=== PATIENT | male | born 1955 | race Caucasian/White ===

== ENCOUNTER 2022-08-31 09:27 | Emergency (ER) | payer BC, MEDICARE ==
[2022-08-31] MEDS: Sodium Chloride 0.9% 10 ML Syringe FLUSH PRN (09:45)
[2022-08-31 10:01] LABS: BASOPHILS PERCENT AUTO 0.6 % (0.3-3.8); EOSINOPHILS PERCENT AUTO 0.8 % (0.1-6.8); HEMATOCRIT 41.5 % (38.3-50.1); LYMPHOCYTES ABSOLUTE AUTO 1.2 x10-3/uL (0.5-4.5); MEAN CORPUSCULAR HEMOGLOBIN 32.1 pg (27.0-33.3); MEAN CORPUSCULAR HGB CONC 33.8 g/dL (28.7-35.3); MEAN PLATELET VOLUME 6.9 fL (6.7-11.0); MONOCYTES ABSOLUTE AUTO 0.7 x10-3/uL (0.0-1.2); MONOCYTES PERCENT AUTO 14.2 % (5.5-15.2); NEUTROPHILS ABSOLUTE AUTO 3.1 x10-3/uL (1.7-6.9); NEUTROPHILS PERCENT AUTO 61.4 % (40.3-71.8); PLATELET COUNT,PLT 256 x10(3)uL (117-477); RED BLOOD CELL COUNT 4.37 x10(6)uL (3.90-5.90); RED CELL DISTRIBUTION WIDTH 13.5 % (12.4-15.0); WHITE BLOOD CELL COUNT,WBC 5.1 x10-3/uL (3.2-10.1)
[2022-08-31 10:04] LABS: BLOOD UREA NITROGEN,BUN 10 mg/dL (7-18); BUN/CREATININE RATIO 14.3 (9-20); CALCIUM 8.5 mg/dL (8.6-10.2); CARBON DIOXIDE,CO2 25 mmol/L (21-32); CHLORIDE,CL 100 mmol/L (100-110); CREATININE 0.7 mg/dL (0.70-1.30); EST CRCL DRUG DOSING (CG) 112.05 mL/min; ESTIMATED GFR 102 mL/min (>60); GLUCOSE RANDOM 141 mg/dL (80-116); POTASSIUM,K 3.4 mmol/L (3.5-5.3); SODIUM,NA 139 mmol/L (135-145)
[2022-08-31] MEDS: Aspirin 81 MG Tab.Chew PO ONE (10:05)
[2022-08-31 10:11] LABS: A/G RATIO 0.9; ALANINE AMINOTRANSFERASE,ALT 48 U/L (12-36); ALBUMIN 3.7 g/dL (3.2-4.6); ALKALINE PHOSPHATASE 87 IU/L (56-112); ASPARTATE AMNIOTRANSFERASE,AST 73 IU/L (5-25); BILIRUBIN TOTAL 0.6 mg/dL (0.1-1.3); MAGNESIUM 1.7 mg/dL (1.8-2.5); PROTEIN TOTAL,TP 7.7 g/dL (6.0-8.0)
[2022-08-31] MEDS: Sodium Chloride 0.9% 500 ML IV ONE (11:05)
[2022-08-31] MEDS: Iopamidol 755 Mg/ML 100 ML Bottle IV ONE (11:22)
== END 2022-08-31 12:58 | disposition home or self-care (01) ==
LOC: FB.ED 09:27
DX: I30.9 Acute pericarditis, unspecified (principal); Z72.0 Tobacco use
CPT/HCPCS: 36415; 71045; 71275; 80053; 83735; 84484; 85025; 85379; 85651; 86140; 93005; 96360; 99285; A9270; J3490; J7040; Q9967

== ENCOUNTER 2022-12-06 12:47 | Observation (INO) | payer MEDICARE ==
[2022-12-06] MEDS ORDERED: Sodium Chloride 0.9% 10 ML Syringe FLUSH PRN (13:12)
[2022-12-06] MEDS ORDERED: Potassium Chloride 20 MEQ Tab.ER PO ONE (13:12)
[2022-12-06] MEDS ORDERED: Sodium Chloride 0.9% 1,000 ML IV ONE ×2 (13:12)
[2022-12-06] MEDS ORDERED: Potassium Chloride 20 MEQ in Premix Bag 1 BAG IV ONE ×2 (13:12→17:00)
[2022-12-06] MEDS ORDERED: Ibuprofen 400 MG Tab PO PRN (13:12)
[2022-12-06] MEDS ORDERED: Ondansetron 4 MG/2 ML SDV IV PRN (13:12)
[2022-12-06] MEDS: NS + KCl 20mEq/L 1,000 ML IV SCH (14:50)
[2022-12-06] MEDS ORDERED: Sodium Chloride 0.9% 500 ML IV ONE (17:24)
[2022-12-06] MEDS: Albuterol 90 MCG/6.7 GM Inhaler INH PRN (18:20)
[2022-12-06] MEDS ORDERED: LORazepam 1 MG Tab PO PRN ×3 (19:57→21:00)
[2022-12-06] MEDS ORDERED: LORazepam 2 MG/ML SDV IV PRN (20:03)
[2022-12-07] MEDS: Albuterol 90 MCG/6.7 GM Inhaler INH PRN ×2 (01:01→08:23)
[2022-12-07] MEDS: NS + KCl 20mEq/L 1,000 ML IV SCH ×5 (01:12→18:32)
[2022-12-07 06:27] LABS: BASOPHILS PERCENT AUTO 0.1 % (0.3-3.8); EOSINOPHILS ABSOLUTE AUTO 0.1 x10-3/uL (0.0-0.6); HEMATOCRIT 36.7 % (38.3-50.1); HEMOGLOBIN 13.1 g/dL (12.9-17.7); LYMPHOCYTES ABSOLUTE AUTO 0.9 x10-3/uL (0.5-4.5); LYMPHOCYTES PERCENT AUTO 13.5 % (15.8-45.3); MEAN CORPUSCULAR HEMOGLOBIN 33.2 pg (27.0-33.3); MEAN CORPUSCULAR HGB CONC 35.7 g/dL (28.7-35.3); MEAN PLATELET VOLUME 7.8 fL (6.7-11.0); MONOCYTES ABSOLUTE AUTO 0.9 x10-3/uL (0.0-1.2); MONOCYTES PERCENT AUTO 13.5 % (5.5-15.2); NEUTROPHILS ABSOLUTE AUTO 4.5 x10-3/uL (1.7-6.9); NEUTROPHILS PERCENT AUTO 71.9 % (40.3-71.8); PLATELET COUNT,PLT 136 x10(3)uL (117-477); RED BLOOD CELL COUNT 3.95 x10(6)uL (3.90-5.90); RED CELL DISTRIBUTION WIDTH 14.2 % (12.4-15.0); WHITE BLOOD CELL COUNT,WBC 6.3 x10-3/uL (3.2-10.1)
[2022-12-07 06:42] LABS: ALBUMIN 3.6 g/dL (3.2-4.6); ALKALINE PHOSPHATASE 127 IU/L (56-112); BILIRUBIN TOTAL 1.8 mg/dL (0.1-1.3); BLOOD UREA NITROGEN,BUN 9 mg/dL (7-18); BUN/CREATININE RATIO 11.3 (9-20); CALCIUM 8.5 mg/dL (8.6-10.2); CARBON DIOXIDE,CO2 29 mmol/L (21-32); CHLORIDE,CL 90 mmol/L (100-110); CREATININE 0.8 mg/dL (0.70-1.30); EST CRCL DRUG DOSING (CG) 92.71 mL/min; ESTIMATED GFR 98 mL/min (>60); GLUCOSE RANDOM 90 mg/dL (80-116); MAGNESIUM 1.5 mg/dL (1.8-2.5); POTASSIUM,K 3.6 mmol/L (3.5-5.3); PROTEIN TOTAL,TP 7.2 g/dL (6.0-8.0); SODIUM,NA 128 mmol/L (135-145)
[2022-12-07 06:46] LABS: ALANINE AMINOTRANSFERASE,ALT 183 U/L (12-36)
[2022-12-07 06:47] LABS: ASPARTATE AMNIOTRANSFERASE,AST 163 IU/L (5-25)
[2022-12-07] MEDS ORDERED: Magnesium Sulfate/Water 2 GM in Premix Bag 1 BAG IV ONE (08:40)
[2022-12-07] MEDS ORDERED: DEXTROMETHORPHAN PO SCH (09:00)
[2022-12-07] MEDS ORDERED: GUAIFENESIN PO SCH (09:00)
[2022-12-07] MEDS ORDERED: INCRUSE ELIPTA INH SCH (09:00)
[2022-12-07] MEDS ORDERED: Nicotine 21 MG/24 Hr Patch *PTOM TRDERM SCH (12:00)
[2022-12-07 16:44] LABS: ALANINE AMINOTRANSFERASE,ALT 144 U/L (12-36); ALBUMIN 3.1 g/dL (3.2-4.6); ALKALINE PHOSPHATASE 112 IU/L (56-112); ASPARTATE AMNIOTRANSFERASE,AST 130 IU/L (5-25); BILIRUBIN TOTAL 1.3 mg/dL (0.1-1.3); BLOOD UREA NITROGEN,BUN 11 mg/dL (7-18); BUN/CREATININE RATIO 15.7 (9-20); CALCIUM 7.8 mg/dL (8.6-10.2); CARBON DIOXIDE,CO2 26 mmol/L (21-32); CHLORIDE,CL 92 mmol/L (100-110); CREATININE 0.7 mg/dL (0.70-1.30); EST CRCL DRUG DOSING (CG) 105.96 mL/min; ESTIMATED GFR 102 mL/min (>60); GLUCOSE RANDOM 125 mg/dL (80-116); MAGNESIUM 1.8 mg/dL (1.8-2.5); POTASSIUM,K 3.4 mmol/L (3.5-5.3); PROTEIN TOTAL,TP 6.2 g/dL (6.0-8.0); SODIUM,NA 126 mmol/L (135-145)
[2022-12-07] MEDS ORDERED: Potassium Chloride 20 MEQ Tab.ER PO ONE (18:02)
[2022-12-07] MEDS ORDERED: Sodium Chloride 1 GM Tab PO ONE (18:03)
[2022-12-07] MEDS ORDERED: Multivitamin Tab PO SCH (21:00)
[2022-12-07] MEDS ORDERED: Thiamine 100 MG Tab PO SCH (21:00)
== END 2022-12-07 23:30 | disposition left against medical advice (07) ==
LOC: FB.MS 12:47
PROVIDERS: ADMIT Family Medicine; ATTEND Family Medicine
DX: E87.6 Hypokalemia (principal); E87.1 Hypo-osmolality and hyponatremia; E87.8 Other disorders of electrolyte and fluid balance, not elsewhere classified; E86.0 Dehydration; E87.20 Acidosis, unspecified; E83.42 Hypomagnesemia; R74.01 Elevation of levels of liver transaminase levels; K75.9 Inflammatory liver disease, unspecified; E80.6 Other disorders of bilirubin metabolism; J44.9 Chronic obstructive pulmonary disease, unspecified; R11.2 Nausea with vomiting, unspecified; F33.9 Major depressive disorder, recurrent, unspecified; K86.0 Alcohol-induced chronic pancreatitis; F10.939 Alcohol use, unspecified with withdrawal, unspecified; Z53.20 Procedure and treatment not carried out because of patient's decision for unspecified reasons; Z78.9 Other specified health status
CPT/HCPCS: 36415; 76705; 80053; 83605; 83690; 83735; 83930; 85025; 93005; 93010; 96365; 96366; 96368; 99222; 99238; A9270-GY; G0378; J3475; J3480; J7030; J7040

== ENCOUNTER 2023-03-31 14:08 | Emergency (ER) | payer MEDICARE ==
[2023-03-31] MEDS ORDERED: Magnesium Sulfate/Water 2 GM in Premix Bag 1 BAG IV ONE (14:35)
[2023-03-31] MEDS ORDERED: Potassium Chloride 20 MEQ Tab.ER PO ONE ×2 (14:35→16:45)
[2023-03-31] MEDS ORDERED: Sodium Chloride 0.9% 1,000 ML IV SCH (19:15)
[2023-03-31] MEDS ORDERED: Thiamine 200 MG/2 ML MDV IVPUSH SCH (19:15)
== END 2023-03-31 16:48 | disposition home or self-care (01) ==
LOC: FB.ED 14:08
DX: E87.6 Hypokalemia (principal); E83.42 Hypomagnesemia; F17.210 Nicotine dependence, cigarettes, uncomplicated; Z79.899 Other long term (current) drug therapy
CPT/HCPCS: 96365; 96366; 99284; A9270; J3475

== ENCOUNTER 2023-03-31 19:04 | Emergency (ER) | payer MEDICARE ==
[2023-03-31] MEDS ORDERED: Sodium Chloride 0.9% 10 ML Syringe FLUSH PRN (19:08)
[2023-03-31 19:24] LABS: BASOPHILS PERCENT AUTO 0.1 % (0.3-3.8); EOSINOPHILS PERCENT AUTO 0.3 % (0.1-6.8); HEMATOCRIT 42.4 % (38.3-50.1); HEMOGLOBIN 14.4 g/dL (12.9-17.7); LYMPHOCYTES ABSOLUTE AUTO 0.9 x10-3/uL (0.5-4.5); LYMPHOCYTES PERCENT AUTO 9.7 % (15.8-45.3); MEAN CORPUSCULAR HEMOGLOBIN 33.5 pg (27.0-33.3); MEAN CORPUSCULAR VOLUME 98.4 fL (80.8-98.7); MEAN PLATELET VOLUME 7.8 fL (6.7-11.0); MONOCYTES ABSOLUTE AUTO 1.4 x10-3/uL (0.0-1.2); MONOCYTES PERCENT AUTO 14.6 % (5.5-15.2); NEUTROPHILS ABSOLUTE AUTO 7.3 x10-3/uL (1.7-6.9); NEUTROPHILS PERCENT AUTO 75.3 % (40.3-71.8); PLATELET COUNT,PLT 169 x10(3)uL (117-477); WHITE BLOOD CELL COUNT,WBC 9.7 x10-3/uL (3.2-10.1)
[2023-03-31 19:37] LABS: A/G RATIO 0.7; ALANINE AMINOTRANSFERASE,ALT 76 U/L (12-36); ALKALINE PHOSPHATASE 213 IU/L (56-112); BILIRUBIN TOTAL 1.4 mg/dL (0.1-1.3); BLOOD UREA NITROGEN,BUN 8 mg/dL (7-18); BUN/CREATININE RATIO 2.4 (9-20); CALCIUM 8.6 mg/dL (8.6-10.2); CARBON DIOXIDE,CO2 24 mmol/L (21-32); CHLORIDE,CL 93 mmol/L (100-110); ESTIMATED GFR 20 mL/min (>60); GLUCOSE RANDOM 112 mg/dL (80-116); POTASSIUM,K 2.9 mmol/L (3.5-5.3); PROTEIN TOTAL,TP 7.5 g/dL (6.0-8.0); SODIUM,NA 135 mmol/L (135-145)
[2023-03-31 19:38] LABS: MAGNESIUM 2.3 mg/dL (1.8-2.5); PHOSPHORUS 2.3 mg/dL (2.6-4.6)
[2023-03-31 19:39] LABS: ASPARTATE AMNIOTRANSFERASE,AST 179 IU/L (5-25); CREATININE 3.3 mg/dL (0.70-1.30)
[2023-03-31] MEDS ORDERED: Thiamine 200 MG/2 ML MDV IVPUSH ONE (19:55)
[2023-03-31] MEDS ORDERED: Sodium Chloride 0.9% 1,000 ML IV SCH ×2 (20:00→21:15)
[2023-03-31 20:06] LABS: AMPHETAMINES SCREEN, URINE NEGATIVE (NEGATIVE); BARBITURATE SCREEN,URINE NEGATIVE (NEGATIVE); BENZODIAZEPINES SCREEN,URINE NEGATIVE (NEGATIVE); BUPRENORPHINE SCREEN,URINE NEGATIVE (NEGATIVE); METHADONE SCREEN, URINE NEGATIVE (NEGATIVE); METHAMPHETAMINE SCREEN, URINE NEGATIVE (NEGATIVE); OXYCODONE SCREEN,URINE NEGATIVE (NEGATIVE); THC SCREEN,URINE NEGATIVE (NEGATIVE)
[2023-03-31] MEDS ORDERED: LORazepam 2 MG/ML SDV IVPUSH ONE ×3 (20:13→21:39)
[2023-03-31] MEDS ORDERED: PHENobarbitaL sodium 260 MG in Sodium Chloride 0.9% 100 ML IV ONE (20:58)
[2023-03-31] MEDS ORDERED: LORazepam 2 MG/ML SDV IVPUSH PRN ×2 (21:34→21:41)
[2023-04-01] MEDS ORDERED: Thiamine 200 MG/2 ML MDV IVPUSH SCH (09:00)
== END 2023-03-31 23:05 ==
LOC: FB.ED 19:04
DX: F10.939 Alcohol use, unspecified with withdrawal, unspecified (principal); Z72.0 Tobacco use; Z79.899 Other long term (current) drug therapy
CPT/HCPCS: 36415; 70450; 71045; 80053; 80307; 83735; 84100; 85025; 93005; 96361; 96365; 96375; 96376; 99285; J2060; J2560; J3411; J3490; J7030

== ENCOUNTER 2023-05-29 03:54 | Emergency (ER) | payer MEDICARE ==
[2023-05-29] MEDS: LORazepam 2 MG/ML SDV IVPUSH ONE (04:07)
[2023-05-29 04:09] LABS: BASOPHILS PERCENT AUTO 0.2 % (0.3-3.8); EOSINOPHILS PERCENT AUTO 0.3 % (0.1-6.8); HEMATOCRIT 33.5 % (38.3-50.1); HEMOGLOBIN 11.4 g/dL (12.9-17.7); LYMPHOCYTES ABSOLUTE AUTO 1.1 x10-3/uL (0.5-4.5); LYMPHOCYTES PERCENT AUTO 11.3 % (15.8-45.3); MEAN CORPUSCULAR HEMOGLOBIN 34.4 pg (27.0-33.3); MEAN CORPUSCULAR HGB CONC 34.1 g/dL (28.7-35.3); MEAN CORPUSCULAR VOLUME 100.9 fL (80.8-98.7); MEAN PLATELET VOLUME 8.1 fL (6.7-11.0); MONOCYTES PERCENT AUTO 10.9 % (5.5-15.2); NEUTROPHILS ABSOLUTE AUTO 7.3 x10-3/uL (1.7-6.9); NEUTROPHILS PERCENT AUTO 77.3 % (40.3-71.8); PLATELET COUNT,PLT 100 x10(3)uL (117-477); RED CELL DISTRIBUTION WIDTH 16.6 % (12.4-15.0); WHITE BLOOD CELL COUNT,WBC 9.4 x10-3/uL (3.2-10.1)
[2023-05-29] MEDS: Sodium Chloride 0.9% 1,000 ML IV SCH (04:23)
[2023-05-29 04:25] LABS: BLOOD UREA NITROGEN,BUN 6 mg/dL (7-18); BUN/CREATININE RATIO 5.5 (9-20); CALCIUM 8.9 mg/dL (8.6-10.2); CARBON DIOXIDE,CO2 31 mmol/L (21-32); CHLORIDE,CL 90 mmol/L (100-110); CREATININE 1.1 mg/dL (0.70-1.30); ESTIMATED GFR 74 mL/min (>60); GLUCOSE RANDOM 128 mg/dL (80-116); POTASSIUM,K 3.1 mmol/L (3.5-5.3); SODIUM,NA 133 mmol/L (135-145)
[2023-05-29 04:31] LABS: RED BLOOD CELL COUNT 3.32 x10(6)uL (3.90-5.90)
[2023-05-29 04:45] LABS: A/G RATIO 0.7; ALANINE AMINOTRANSFERASE,ALT 78 U/L (12-36); ALBUMIN 3.2 g/dL (3.2-4.6); ALKALINE PHOSPHATASE 320 IU/L (56-112); BILIRUBIN TOTAL 4.4 mg/dL (0.1-1.3)
[2023-05-29 04:52] LABS: ASPARTATE AMNIOTRANSFERASE,AST 288 IU/L (5-25)
[2023-05-29] MEDS: Potassium Chloride 20 MEQ Tab.ER PO ONE (05:08)
[2023-05-29] MEDS: Folic Acid 1 MG Tab PO ONE (05:08)
[2023-05-29] MEDS: Thiamine 100 MG Tab PO ONE (05:08)
[2023-05-29] MEDS: LORazepam 2 MG/ML SDV IVPUSH PRN (05:20)
[2023-05-29] MEDS: Potassium Chloride 20 MEQ Tab.ER ONE (05:27)
[2023-05-29] MEDS: Magnesium Sulfate/Water 4 GM in Premix Bag 1 BAG IV ONE (06:15)
[2023-05-29 06:20] LABS: AMMONIA, PLASMA 59
[2023-05-29] MEDS: levETIRAcetam in NaCl (iso-os) 1,500 MG in Premix Bag 100 BAG IV ONE (08:15)
[2023-05-29 10:30] LABS: AMPHETAMINES SCREEN, URINE NEGATIVE (NEGATIVE); BARBITURATE SCREEN,URINE POSITIVE (NEGATIVE); BENZODIAZEPINES SCREEN,URINE POSITIVE (NEGATIVE); BUPRENORPHINE SCREEN,URINE NEGATIVE (NEGATIVE); METHADONE SCREEN, URINE NEGATIVE (NEGATIVE); METHAMPHETAMINE SCREEN, URINE NEGATIVE (NEGATIVE); OXYCODONE SCREEN,URINE NEGATIVE (NEGATIVE); THC SCREEN,URINE NEGATIVE (NEGATIVE)
== END 2023-05-29 11:57 ==
LOC: FB.ED 03:54
DX: F10.131 Alcohol abuse with withdrawal delirium (principal); R56.9 Unspecified convulsions; J43.9 Emphysema, unspecified; E83.42 Hypomagnesemia; E87.1 Hypo-osmolality and hyponatremia; E87.6 Hypokalemia; R74.01 Elevation of levels of liver transaminase levels; F17.210 Nicotine dependence, cigarettes, uncomplicated; Z79.899 Other long term (current) drug therapy
CPT/HCPCS: 36415; 70450; 80053; 80307; 82140; 83735; 85025; 93005; 93010; 96361; 96365; 96366; 96367; 96375; 96376; 99285; 99285-25; A9270-GY; J1953; J2060; J3475; J7030